=== PATIENT | female | born 1965 | race Caucasian/White ===

== ENCOUNTER 2017-09-09 17:03 | Inpatient (IN) | payer OTHER ==
[~2017-09-09] VITALS: Ht 149.9 cm; Wt 57.9 kg
[2017-09-09] MEDS ORDERED: ONDANSETRON HCL 4 MG/2 ML VIAL ONE ×2 (17:18→19:48)
[2017-09-09] MEDS ORDERED: SODIUM CHLORIDE 0.9% 1000ML 1,000 ML IV ONE ×4 (17:18→22:36)
[2017-09-09 17:32] LABS: BILIRUBIN,URINE Negative (NEGATIVE); COLOR,URINE Yellow (YELLOW); GLUCOSE, URINE (UA) >=1000 mg/dL (NEGATIVE); KETONES,URINE >=160 mg/dL (NEGATIVE); LEUKOCYTE ESTERASE ,URINE Small (NEGATIVE); NITRATE,URINE Negative (NEGATIVE); OCCULT BLOOD,URINE Small (NEGATIVE); PROTEIN,URINE POS 2+ (NEGATIVE); UROBILINOGEN,URINE 0.2 mg/dL (0.2-1.0)
[2017-09-09 17:34] LABS: BASOPHILS % (AUTO) 0.5 % (0.0-5.0); HEMATOCRIT 50.1 % (36-48); LYMPHOCYTES % (AUTO) 11.4 % (21.0-51.0); MEAN CORPUSCULAR HEMOGLOBIN 29.8 pg (27.0-33.0); MEAN CORPUSCULAR HGB CONC 33.8 g/dL (32.0-36.0); MEAN CORPUSCULAR VOLUME 88.1 fL (79-99); NEUTROPHILS % (AUTO) 83.1 % (40.0-77.0); NUCLEATED RED BLOOD CELLS 0.1 % (0.0-0.19); PLATELET COUNT (AUTO) 251 K/uL (130-400); RED BLOOD CELL COUNT(AUTO) 5.68 MIL/uL (4.00-5.50); RED CELL DISTRIBUTION WIDTH 13.6 % (11.0-15.5); WHITE BLOOD COUNT (AUTO) 13.6 K/uL (4.8-10.8)
[2017-09-09 17:40] LABS: APPEARANCE,URINE SLIGHTLY CLOUDY (CLEAR)
[2017-09-09 17:45] LABS: POTASSIUM 4.4 mmol/L (3.5-5.1)
[2017-09-09 17:49] LABS: ALBUMIN 3.8 g/dL (3.5-5.0); BILIRUBIN,TOTAL 0.5 mg/dL (0.2-1.0); TOTAL PROTEIN, SERUM 8.2 g/dL (6.0-8.3)
[2017-09-09 17:50] LABS: BACTERIA,URINE Few /HPF (None Seen); WBC,URINE 26-50 /HPF (0-1)
[2017-09-09 17:53] LABS: SQUAMOUS EPITHELIAL CELL,UR Few /LPF (0-2)
[2017-09-09] MEDS ORDERED: LEVOFLOXACIN 500 MG TABLET ONE ×2 (18:25→18:27)
[2017-09-09] MEDS ORDERED: LEVOFLOXACIN 750 MG/D5W 150 ML 150 ML ONE (19:36)
[2017-09-09] MEDS ORDERED: ACETAMINOPHEN EXTRA STRENGTH 500 MG TABLET ONE (19:37)
[2017-09-09] MEDS ORDERED: INSULIN HUMULIN R 100 UNIT/ML 3ML ONE (20:16)
[2017-09-09] MEDS ORDERED: SODIUM CHLORIDE 0.9% 100 ML IV ONE (21:10)
[2017-09-09] MEDS ORDERED: PROMETHAZINE HCL 25 MG/ML 1ML AMPULE IM ONE ×2 (21:10→21:13)
[2017-09-09] MEDS: SODIUM CHLORIDE 0.9% 1000ML 1,000 ML IV SCH (22:37)
[2017-09-09] MEDS ORDERED: ONDANSETRON HCL 4 MG/2 ML VIAL IV PRN (22:45)
[2017-09-09] MEDS ORDERED: HYDRALAZINE HCL 20 MG/ML VIAL IV PRN (22:45)
[2017-09-09] MEDS ORDERED: PROMETHAZINE HCL 25 MG/ML 1ML AMPULE IM PRN (22:45)
[2017-09-09 23:30] VITALS: BP 106/60
[2017-09-10 03:10] VITALS: BP 103/60
[2017-09-10 03:38] LABS: BASOPHILS % (AUTO) 0.3 % (0.0-5.0); HEMATOCRIT 41.2 % (36-48); LYMPHOCYTES % (AUTO) 19.4 % (21.0-51.0); MEAN CORPUSCULAR HEMOGLOBIN 29.3 pg (27.0-33.0); MEAN CORPUSCULAR VOLUME 86.4 fL (79-99); MONOCYTES % (AUTO) 8.3 % (3.0-13.0); PLATELET COUNT (AUTO) 160 K/uL (130-400); RED BLOOD CELL COUNT(AUTO) 4.77 MIL/uL (4.00-5.50); RED CELL DISTRIBUTION WIDTH 13.6 % (11.0-15.5); WHITE BLOOD COUNT (AUTO) 9.3 K/uL (4.8-10.8)
[2017-09-10 03:53] LABS: CREATININE 0.8 mg/dL (0.5-1.5); POTASSIUM 3.5 mmol/L (3.5-5.1)
[2017-09-10] MEDS: INSULIN LISPRO 100 UNIT/ML 3ML SQ SCH ×4 (06:09→21:13)
[2017-09-10 07:00] VITALS: BP 100/63
[2017-09-10] MEDS ORDERED: LEVOFLOXACIN 750 MG/D5W 150 ML 150 ML IV SCH (09:00)
[2017-09-10] MEDS: ACETAMINOPHEN 325 MG TAB PO PRN (09:24)
[2017-09-10] MEDS: FAMOTIDINE/PF 20 MG/2 ML VIAL IV SCH ×2 (09:24→20:54)
[2017-09-10] MEDS: OSELTAMIVIR PHOSPHATE 75 MG CAP PO SCH ×2 (09:24→20:54)
[2017-09-10 12:00] VITALS: BP 101/63
[2017-09-10] MEDS: SODIUM CHLORIDE 0.9% 1000ML 1,000 ML IV SCH ×2 (14:37→20:54)
[2017-09-10 16:00] VITALS: BP 101/69
[2017-09-10] MEDS: LEVOFLOXACIN 750 MG/D5W 150 ML 150 ML IV SCH (18:32)
[2017-09-10 19:15] VITALS: BP 105/68
[2017-09-10 23:26] VITALS: BP 101/64
[2017-09-11 03:29] VITALS: BP 111/64
[2017-09-11] MEDS ORDERED: INSULIN LISPRO 100 UNIT/ML 3ML SQ ONE (06:21)
[2017-09-11] MEDS: SODIUM CHLORIDE 0.9% 1000ML 1,000 ML IV SCH ×3 (06:24→22:37)
[2017-09-11] MEDS: INSULIN LISPRO 100 UNIT/ML 3ML SQ SCH ×4 (06:28→21:41)
[2017-09-11 08:00] VITALS: BP 105/66
[2017-09-11] MEDS: OSELTAMIVIR PHOSPHATE 75 MG CAP PO SCH ×2 (08:23→21:36)
[2017-09-11] MEDS: LEVOFLOXACIN 750 MG/D5W 150 ML 150 ML IV SCH (08:23)
[2017-09-11] MEDS: FAMOTIDINE/PF 20 MG/2 ML VIAL IV SCH ×2 (08:24→21:36)
[2017-09-11 12:00] VITALS: BP 110/61
[2017-09-11] MEDS: ACETAMINOPHEN 325 MG TAB PO PRN (15:00)
[2017-09-11 16:00] VITALS: BP 105/70
[2017-09-11 19:22] VITALS: BP 109/74
[2017-09-11 23:30] VITALS: BP 120/76
[2017-09-12] MEDS ORDERED: GUAIFENESIN-CODEINE 5 ML SYRUP PO PRN (00:30)
[2017-09-12 03:30] VITALS: BP 99/67
[2017-09-12] MEDS: SODIUM CHLORIDE 0.9% 1000ML 1,000 ML IV SCH (04:21)
[2017-09-12] MEDS: INSULIN LISPRO 100 UNIT/ML 3ML SQ SCH ×2 (07:11→12:04)
[2017-09-12 08:00] VITALS: BP 102/63
[2017-09-12] MEDS ORDERED: LEVO500T2 PO (08:10)
[2017-09-12] MEDS ORDERED: OSEL75 PO (08:10)
[2017-09-12] MEDS: OSELTAMIVIR PHOSPHATE 75 MG CAP PO SCH (09:08)
[2017-09-12] MEDS: FAMOTIDINE/PF 20 MG/2 ML VIAL IV SCH (09:08)
[2017-09-12] MEDS: LEVOFLOXACIN 750 MG/D5W 150 ML 150 ML IV SCH (09:08)
[2017-09-12 11:00] VITALS: BP 110/72
== END 2017-09-12 12:40 | disposition home or self-care (01) | DRG 872 ==
LOC: EDH 17:03 → EDHIP 20:10 → 3BH 23:35
PROVIDERS: ADMIT Family Medicine; ATTEND Family Medicine
DX: A41.9 Sepsis, unspecified organism (principal); E87.1 Hypo-osmolality and hyponatremia; N39.0 Urinary tract infection, site not specified; J10.1 Influenza due to other identified influenza virus with other respiratory manifestations; E86.0 Dehydration; E11.9 Type 2 diabetes mellitus without complications; K52.9 Noninfective gastroenteritis and colitis, unspecified; J40 Bronchitis, not specified as acute or chronic
CPT/HCPCS: 36415; 80048; 80053; 81001; 82948; 83605; 85025; 87088; 87804; 99291; J1815; J1956; J2405; J2550; J3490; J7030